=== PATIENT | female | born 1975 | race Caucasian/White ===

== ENCOUNTER 2021-03-10 06:14 | Day surgery (SDC) | payer MEDICARE, MEDICAID ==
[2021-03-09 08:51] VITALS: BP 168/103
[2021-03-09 10:09] LABS: ALANINE AMINOTRANSFERASE 31 U/L (12-78); ALBUMIN 3.5 g/dL (3.4-5.0); ANION GAP 5 mmol/L (5-15); CALCIUM 9.2 mg/dL (8.5-10.1); CHLORIDE 103 mmol/L (98-107)
[2021-03-09 10:11] LABS: ALKALINE PHOSPHATASE 123 U/L (45-117); BILIRUBIN,TOTAL 0.3 mg/dL (0.2-1.0); TOTAL PROTEIN 7.3 g/dL (6.4-8.2)
[~2021-03-10] VITALS: Ht 162.6 cm; Wt 105.1 kg
[~2021-03-10 06:14] MED LIST: CARI3CAP PO; CHOL10003 PO; FENTANYL PF 100 MCG/2ML ONE; GLIP-142 PO; INSU100V8 SQ; LEVO100T5 PO; LISI-167 PO; MIDAZOLAM 1 MG/ML, 2ML ONE; NIAC500T9 PO; SELE200T10 PO; SITA100T PO; VENL150C PO
[2021-03-10] MEDS ORDERED: LIDOCAINE-MPF 1%, 5ML ONE (06:56)
[2021-03-10] MEDS ORDERED: BETAMETHASONE 6 MG/ML, 5ML IM ONE (06:56)
[2021-03-10] MEDS ORDERED: BUPIVACAINE/PF 0.5% ONE (06:56)
[2021-03-10] MEDS ORDERED: LACTATED RINGERS 1,000 ML IV SCH (07:00)
[2021-03-10] MEDS ORDERED: CHLORHEXIDINE 15 ML UDC PO ONE (07:00)
[2021-03-10 07:11] VITALS: BP 168/103
[2021-03-10 07:16] LABS: HCG UR SG 1.007 (1.003-1.030)
[2021-03-10] MEDS ORDERED: MIDAZOLAM 1 MG/ML, 2ML ONE (08:08)
[2021-03-10] MEDS ORDERED: FENTANYL PF 100 MCG/2ML ONE (08:08)
[2021-03-10] MEDS ORDERED: LABETALOL 5MG/ML, 20ML IV PRN (08:30)
[2021-03-10] MEDS ORDERED: hydrALAzine 20 MG/ML, 1ML IV PRN (08:30)
[2021-03-10] MEDS ORDERED: OXYcodone 5 MG/5 ML ORAL.SOL UDC PO PRN (08:30)
[2021-03-10] MEDS ORDERED: ACETAMINOPHEN 325 MG TABLET PO PRN (08:30)
[2021-03-10] MEDS ORDERED: ONDANSETRON 2MG/ML, 2ML IVPush PRN (08:30)
[2021-03-10] MEDS ORDERED: EPHEDRINE 50 MG/ML, 1ML IVPush PRN (08:30)
[2021-03-10] MEDS ORDERED: FENTANYL PF 100 MCG/2ML IV PRN (08:30)
[2021-03-10] MEDS ORDERED: HYDROmorphone 1 MG/ML, 1ML INJ IVPush PRN (08:30)
[2021-03-10] MEDS ORDERED: CEFAZOLIN 1,000 MG ONE ×2 (08:35)
[2021-03-10] MEDS ORDERED: PROPOFOL 10 MG/ML, 20ML ONE (08:35)
[2021-03-10] MEDS ORDERED: SODIUM CHLORIDE 0.9% PF 10ML ONE (08:35)
== END 2021-03-10 10:20 | disposition home or self-care (01) ==
LOC: OUT 06:14
PROVIDERS: ATTEND Orthopaedic Surgery
DX: G56.03 Carpal tunnel syndrome, bilateral upper limbs (principal); E11.9 Type 2 diabetes mellitus without complications; I10 Essential (primary) hypertension; E03.9 Hypothyroidism, unspecified; Z20.822 Contact with and (suspected) exposure to COVID-19; Z79.4 Long term (current) use of insulin; Z79.890 Hormone replacement therapy; Z79.899 Other long term (current) drug therapy; Z88.0 Allergy status to penicillin; Z88.5 Allergy status to narcotic agent; Z88.8 Allergy status to other drugs, medicaments and biological substances
CPT/HCPCS: 36415; 64721; 80053; 81025; 82962; 93005; J0690; J2250; J2704; J3010; J7120; U0003; U0005; J0702